=== PATIENT | male | born 1960 | race Caucasian/White ===

== ENCOUNTER 2021-11-22 21:58 | Emergency (ER) | payer BC ==
[2021-11-22] MEDS: Aspirin 81 MG Tab.Chew PO STA (22:15)
[2021-11-22] MEDS ORDERED: Sodium Chloride 0.9% 10 ML Syringe FLUSH PRN (22:34)
[2021-11-22 22:56] LABS: ANION GAP 11.4 mmol/L (5-15)
[2021-11-23] MEDS: Aspirin 81 MG Tab.Chew ONE (01:47)
== END 2021-11-22 23:30 | disposition home or self-care (01) ==
LOC: KA.ED 21:58
DX: U07.1 COVID-19 (principal); R07.9 Chest pain, unspecified; Z88.7 Allergy status to serum and vaccine; Z79.899 Other long term (current) drug therapy; Z79.82 Long term (current) use of aspirin
CPT/HCPCS: 36415; 71046; 80053; 84484; 85025; 93005; 93010; 99284; 99285; A9270-GY; U0002

== ENCOUNTER 2023-09-09 15:22 | Emergency (ER) | payer OTHER, BC ==
[2023-09-09 15:45] LABS: BASOPHILS ABSOLUTE AUTO 0.03 10^3/uL (0.00-0.10); BASOPHILS PERCENT AUTO 0.3 % (0.0-1.0); EOSINOPHILS ABSOLUTE AUTO 0.24 10^3/uL (0.10-0.30); EOSINOPHILS PERCENT AUTO 2.2 % (1.0-3.0); HEMATOCRIT 41.8 % (40.0-52.0); HEMOGLOBIN 14.8 g/dL (13.0-17.0); IMMATURE GRAN ABSOLUTE AUTO 0.02 10^3/uL (0.00-0.50); IMMATURE GRAN PERCENT AUTO 0.2 % (0.0-5.0); LYMPHOCYTES ABSOLUTE AUTO 2.67 10^3/uL (1.00-4.00); LYMPHOCYTES PERCENT AUTO 24.6 % (20.0-40.0); MEAN CORPUSCULAR HEMOGLOBIN 29.8 pg (27.0-31.0); MEAN CORPUSCULAR HGB CONC 35.4 g/dL (32.0-36.0); MEAN CORPUSCULAR VOLUME 84.1 fL (82.0-92.0); MEAN PLATELET VOLUME 9.4 fL (7.4-10.4); MONOCYTES ABSOLUTE AUTO 0.88 10^3/uL (0.10-0.80); MONOCYTES PERCENT AUTO 8.1 % (2.0-8.0); NEUTROPHILS ABSOLUTE AUTO 7.03 10^3/uL (2.50-7.00); NEUTROPHILS PERCENT AUTO 64.6 % (50.0-70.0); PLATELET COUNT,PLT 244 10^3/uL (150-400); RED BLOOD CELL COUNT 4.97 10^6/uL (4.50-6.00); RED CELL DISTRIBUTION WIDTH 12.7 % (11.5-14.5); WHITE BLOOD CELL COUNT,WBC 10.87 10^3/uL (5.00-10.00)
[2023-09-09 16:01] LABS: ALANINE AMINOTRANSFERASE,ALT 38 U/L (14-63); ALBUMIN 3.53 g/dL (3.40-5.00); ALKALINE PHOSPHATASE 74 U/L (46-116); ANION GAP 12.3 mmol/L (5-15); ASPARTATE AMNIOTRANSFERASE,AST 25 U/L (15-37); BILIRUBIN TOTAL 0.3 mg/dL (0.2-1.0); BLOOD UREA NITROGEN,BUN 12 mg/dL (7-18); CALCIUM 8.6 mg/dL (8.7-10.3); CARBON DIOXIDE,CO2 27.9 mmol/L (21.0-32.0); CHLORIDE,CL 105 mmol/L (98-107); CREATININE 0.88 mg/dL (0.51-1.17); ESTIMATED GFR 98 mL/min (>=60); GLUCOSE RANDOM 107 mg/dL (70-140); POTASSIUM,K 4.2 mmol/L (3.5-5.1); PROTEIN TOTAL,TP 6.6 g/dL (6.4-8.2); SODIUM,NA 141 mmol/L (136-145)
== END 2023-09-09 16:00 ==
LOC: KA.ED 15:22
DX: S01.81XA Laceration without foreign body of other part of head, initial encounter (principal); Z88.8 Allergy status to other drugs, medicaments and biological substances; Z79.82 Long term (current) use of aspirin; V20.49XA Other motorcycle driver injured in collision with pedestrian or animal in traffic accident, initial encounter; Y93.89 Activity, other specified
CPT/HCPCS: 36415; 71045; 72170; 80053; 85025; 85610; 99285; Q3014

== ENCOUNTER 2023-11-29 10:33 | Emergency (ER) | payer BC ==
[2023-11-29 10:52] LABS: BASOPHILS ABSOLUTE AUTO 0.02 10^3/uL (0.00-0.10); BASOPHILS PERCENT AUTO 0.3 % (0.0-1.0); EOSINOPHILS ABSOLUTE AUTO 0.39 10^3/uL (0.10-0.30); EOSINOPHILS PERCENT AUTO 5.8 % (1.0-3.0); HEMATOCRIT 39.6 % (40.0-52.0); HEMOGLOBIN 13.1 g/dL (13.0-17.0); IMMATURE GRAN ABSOLUTE AUTO 0.03 10^3/uL (0.00-0.50); IMMATURE GRAN PERCENT AUTO 0.4 % (0.0-5.0); LYMPHOCYTES PERCENT AUTO 29.8 % (20.0-40.0); MEAN CORPUSCULAR HEMOGLOBIN 28.1 pg (27.0-31.0); MEAN CORPUSCULAR HGB CONC 33.1 g/dL (32.0-36.0); MEAN PLATELET VOLUME 9.3 fL (7.4-10.4); MONOCYTES ABSOLUTE AUTO 0.52 10^3/uL (0.10-0.80); MONOCYTES PERCENT AUTO 7.7 % (2.0-8.0); NEUTROPHILS ABSOLUTE AUTO 3.75 10^3/uL (2.50-7.00); PLATELET COUNT,PLT 223 10^3/uL (150-400); RED BLOOD CELL COUNT 4.66 10^6/uL (4.50-6.00); WHITE BLOOD CELL COUNT,WBC 6.71 10^3/uL (5.00-10.00)
[2023-11-29] MEDS: Sodium Chloride 0.9% 1,000 ML IV ONE (11:00)
[2023-11-29 11:11] LABS: ALANINE AMINOTRANSFERASE,ALT 19 U/L (14-63); ALKALINE PHOSPHATASE 92 U/L (46-116); ANION GAP 12.2 mmol/L (5-15); ASPARTATE AMNIOTRANSFERASE,AST 14 U/L (15-37); BILIRUBIN TOTAL 0.2 mg/dL (0.2-1.0); BLOOD UREA NITROGEN,BUN 12 mg/dL (7-18); CALCIUM 9.3 mg/dL (8.7-10.3); CARBON DIOXIDE,CO2 24.8 mmol/L (21.0-32.0); CHLORIDE,CL 106 mmol/L (98-107); CREATININE 0.73 mg/dL (0.51-1.17); ESTIMATED GFR 104 mL/min (>=60); GLUCOSE RANDOM 104 mg/dL (70-140); PROTEIN TOTAL,TP 6.8 g/dL (6.4-8.2); SODIUM,NA 139 mmol/L (136-145)
[2023-11-29] MEDS: cefTRIAXone 1 GM Vial IVPUSH ONE (12:41)
== END 2023-11-29 12:27 | disposition home or self-care (01) ==
LOC: KA.ED 10:33
DX: J18.9 Pneumonia, unspecified organism (principal); E78.00 Pure hypercholesterolemia, unspecified; Z79.82 Long term (current) use of aspirin; Z79.899 Other long term (current) drug therapy; Z88.2 Allergy status to sulfonamides; Z79.02 Long term (current) use of antithrombotics/antiplatelets
CPT/HCPCS: 36415; 71045; 80053; 84484; 85025; 93010; 96374; 99284; 99285-25; J0696; J7030

== ENCOUNTER 2023-12-14 14:30 | Emergency (ER) | payer BC ==
[2023-12-14] MEDS ORDERED: Sodium Chloride 0.9% 10 ML Syringe FLUSH PRN (14:45)
[2023-12-14 14:52] VITALS: BP 139/81; PULSE 91
[2023-12-14] MEDS: diphenhydrAMINE 50 MG/ML SDV IVPUSH ONE (14:59)
[2023-12-14] MEDS: methylPREDNISolone Sodium Succinate 125 MG/2 ML SDV IVPUSH ONE (15:01)
[2023-12-14] MEDS: Famotidine 20 MG/2 ML SDV IVPUSH ONE (15:05)
== END 2023-12-14 16:13 | disposition home or self-care (01) ==
LOC: KA.ED 14:30
DX: T88.1XXA Other complications following immunization, not elsewhere classified, initial encounter (principal); E78.00 Pure hypercholesterolemia, unspecified; Z88.2 Allergy status to sulfonamides; Z79.82 Long term (current) use of aspirin; Z79.02 Long term (current) use of antithrombotics/antiplatelets; Z79.899 Other long term (current) drug therapy
CPT/HCPCS: 96374; 96375; 99283; 99283-25; J1200; J2919; J3490